=== PATIENT | female | born 1970 | race American Indian/Alaskan Native ===

== ENCOUNTER 2018-03-12 12:41 | Emergency (ER) | payer MEDICARE ==
[2018-03-12 12:58] VITALS: BP 109/70
[2018-03-12] MEDS ORDERED: ZITHROMAX PO ONE (13:38)
[2018-03-12] MEDS ORDERED: DECADRON IM ONE (13:38)
[2018-03-12] MEDS ORDERED: NORCO 5/325 PO ONE (13:38)
--- NOTE | 2018-03-12 13:46 | Emergency Department Report ---
- General Chief Complaint: Upper Respiratory Infection Stated Complaint: FLU? Time Seen by Provider: 03/12/18 13:28 Source: patient Mode of arrival: Ambulatory Limitations: No Limitations - History of Present Illness Initial Comments: Patient is a 47-year-old female who is presenting with cough cold congestion for the past 3 days. Patient states she has sore throat and stuffy nose and a productive cough clear yellow sputum. Patient denies any nausea vomiting or diarrhea. Patient has a history of thrush. - Related Data Previous Rx's Medication Instructions Recorded Last Taken Type ALBUTEROL Inhaler (OR & NICU) 2 puff IH QID PRN #1 inhalation 03/12/18 Unknown Rx [ProAir HFA Inhaler] Azithromycin [Zithromax Z-ELBA] 250 mg PO DAILY #6 tablet 03/12/18 Unknown Rx Nystatin [Nystatin SUSP] 10 ml PO TID 7 Days ml 03/12/18 Unknown Rx predniSONE [Deltasone] 20 mg PO QDAY #5 tab 03/12/18 Unknown Rx traMADol [Ultram] 50 mg PO Q6HR PRN #10 tablet 03/12/18 Unknown Rx Allergies Allergy/AdvReac Type Severity Reaction Status Date / Time bee venom protein (honey bee) Allergy Angioedema Verified 03/12/18 12:54 ED Review of Systems ROS: Stated complaint: FLU? Other details as noted in HPI Comment: All other systems reviewed and negative ED Past Medical Hx - Past Medical History Previous Medical History?: Yes Hx of Cancer: Yes (lymphnode-remission x7yrs) - Surgical History Past Surgical History?: Yes Additional Surgical History: cervical spine fusion - Social History Smoking Status: Current Every Day Smoker Substance Use Type: None - Medications Home Medications: Home Medications Medication Instructions Recorded Confirmed Last Taken Type ALBUTEROL Inhaler (OR & NICU) 2 puff IH QID PRN #1 inhalation 03/12/18 Unknown Rx [ProAir HFA Inhaler] Azithromycin [Zithromax Z-ELBA] 250 mg PO DAILY #6 tablet 03/12/18 Unknown Rx Nystatin [Nystatin SUSP] 10 ml PO TID 7 Days ml 03/12/18 Unknown Rx predniSONE [Deltasone] 20 mg PO QDAY #5 tab 03/12/18 Unknown Rx traMADol [Ultram] 50 mg PO Q6HR PRN #10 tablet 03/12/18 Unknown Rx ED Physical Exam - General Limitations: No Limitations General appearance: alert, in no apparent distress - Head Head exam: Present: atraumatic, normocephalic - Eye Eye exam: Present: normal appearance - ENT ENT exam: Present: mucous membranes moist. Absent: normal orophraynx (patient' s pharynx is erythematous. Patient does have a small white patch on the uvula as well as the hard palate.) - Neck Neck exam: Present: normal inspection - Respiratory Respiratory exam: Present: normal lung sounds bilaterally. Absent: respiratory distress, wheezes, rales, rhonchi, chest wall tenderness - Cardiovascular Cardiovascular Exam: Present: regular rate, normal rhythm. Absent: systolic murmur, diastolic murmur, rubs, gallop - GI/Abdominal GI/Abdominal exam: Present: soft, normal bowel sounds. Absent: distended, tenderness, guarding - Extremities Exam Extremities exam: Present: normal inspection - Back Exam Back exam: Present: normal inspection - Neurological Exam Neurological exam: Present: alert, oriented X3 - Psychiatric Psychiatric exam: Present: normal affect, normal mood - Skin Skin exam: Present: warm, dry, intact, normal color. Absent: rash ED Course Vital Signs 03/12/18 12:55 Temperature 99.6 F Pulse Rate 87 Respiratory 18 Rate Blood Pressure 109/70 O2 Sat by Pulse 98 Oximetry ED Medical Decision Making - Medical Decision Making Patient has a history of thrush and does appear to have a possible thrush infection at this time and will be started on nystatin swish and swallow. Patient also appears to have a smoker's bronchitis. Patient's lungs are clear O2 saturation is within normal limits. Because of the patient's history of smoking she will be placed on antibiotics. Patient also given minutes for symptomatic relief. Critical care attestation.: If time is entered above; I have spent that time in minutes in the direct care of this critically ill patient, excluding procedure time. ED Disposition Clinical Impression: Thrush Pharyngitis Qualifiers: Pharyngitis/tonsillitis etiology: unspecified etiology Qualified Code(s): J02.9 - Acute pharyngitis, unspecified Acute bronchitis Qualifiers: Bronchitis organism: unspecified organism Qualified Code(s): J20.9 - Acute bronchitis, unspecified Disposition: TO HOME OR SELFCARE Is pt being admited?: No Does the pt Need Aspirin: No Condition: Stable Instructions: Acute Bronchitis (ED), Pharyngitis (ED) Time of Disposition: 13:46
== END 2018-03-12 14:18 | disposition home or self-care (01) ==
LOC: ED 12:41
DX: J20.9 Acute bronchitis, unspecified (principal); B37.9 Candidiasis, unspecified; J02.9 Acute pharyngitis, unspecified; F17.200 Nicotine dependence, unspecified, uncomplicated; Z91.030 Bee allergy status
CPT/HCPCS: 93005; 93010; 96372; 99282; J1100